=== PATIENT | female | born 1985 | race Caucasian/White ===

== ENCOUNTER 2017-04-26 09:04 | Day surgery (SDC) | payer BC ==
[~2017-04-26] VITALS: Ht 167.6 cm; Wt 91.4 kg
[2017-04-26] MEDS ORDERED: normal saline 1000ml 1,000 ML IV SCH (09:30)
[2017-04-26 09:50] LABS: BASOPHILS # (AUTO) 0.1 X10'3 (0-0.2); BASOPHILS % (AUTO) 0.7 % (0-1); EOSINOPHILS # (AUTO) 0.2 X10'3 (0-0.9); EOSINOPHILS % (AUTO) 2.9 % (0-6); HEMATOCRIT 28.6 % (35.0-45.0); HEMOGLOBIN 9.9 g/dl (12.0-16.0); LYMPHOCYTES # (AUTO) 2.4 X10'3 (1.1-4.8); LYMPHOCYTES % (AUTO) 31.8 % (21-51); MEAN CORPUSCULAR HEMOGLOBIN 30.7 PG (27.0-31.0); MEAN CORPUSCULAR HGB CONC 34.8 % (33.0-36.5); MEAN CORPUSCULAR VOLUME 88.4 FL (78-98); MEAN PLATELET VOLUME 8.3 FL (7.4-10.4); MONOCYTES # (AUTO) 0.4 X10'3 (0-0.9); NEUTROPHILS # (AUTO) 4.4 X10'3 (1.8-7.7); NEUTROPHILS % (AUTO) 58.6 % (42-75); PLATELET COUNT 151 X10'3 (140-440); RED BLOOD COUNT 3.23 X10'6 (4.20-5.60); RED CELL DISTRIBUTION WIDTH 12.3 % (11.5-14.5); WHITE BLOOD COUNT 7.5 X10'3 (4.5-11.0)
[2017-04-26] MEDS ORDERED: CALC0.5C2 PO (10:59)
[2017-04-26] MEDS ORDERED: BENA40TA2 PO (10:59)
[2017-04-26] MEDS ORDERED: ALPR1TAB2 PO (10:59)
[2017-04-26] MEDS ORDERED: PHO667C PO (10:59)
[2017-04-26] MEDS ORDERED: OXAZEpam 15mg capsule PO ONE (11:00)
[2017-04-26 11:08] VITALS: BP 133/85
[2017-04-26] MEDS ORDERED: iohexol 300mg/ml 100ml inj. ONE (11:19)
[2017-04-26] MEDS ORDERED: LIDOcaine 1%/PF (10mg/ml) 5ml vial ONE ×2 (11:19→13:28)
[2017-04-26] MEDS ORDERED: heparin 1,000 UNITS/NS 500ml 500 ML ICATH ONE (11:35)
[2017-04-26] MEDS ORDERED: LIDOcaine 1%/PF (10mg/ml) 5ml vial SQ ONE (11:35)
[2017-04-26] MEDS ORDERED: heparin 1,000 UNITS/NS 500ml 500 ML ONE ×2 (11:44→12:50)
[2017-04-26] MEDS ORDERED: fentaNYL/PF 50MCG/1 ML 2ML syringe ONE ×2 (11:45→13:41)
[2017-04-26] MEDS ORDERED: midazolam 2 mg/2 ml injection ONE (11:45)
[2017-04-26] MEDS ORDERED: tPA-cathflo 2 MG/2 ml IV flush IVF STA (11:49)
[2017-04-26] MEDS ORDERED: heparin 1,000unit/ml 10ml vial 10 ML ONE (13:22)
[2017-04-26 14:19] VITALS: BP 145/103
[2017-04-26 14:30] VITALS: BP 134/94
[2017-04-26 14:45] VITALS: BP 140/98
[2017-04-26 15:00] VITALS: BP 146/96
[2017-04-26 15:15] VITALS: BP 133/90
== END 2017-04-26 13:40 | disposition home or self-care (01) ==
LOC: SSTAY O 09:04
PROVIDERS: ATTEND Radiology Diagnostic Radiology
DX: T82.868A Thrombosis due to vascular prosthetic devices, implants and grafts, initial encounter (principal); Y83.2 Surgical operation with anastomosis, bypass or graft as the cause of abnormal reaction of the patient, or of later complication, without mention of misadventure at the time of the procedure; Z79.899 Other long term (current) drug therapy; N18.6 End stage renal disease; I12.0 Hypertensive chronic kidney disease with stage 5 chronic kidney disease or end stage renal disease
CPT/HCPCS: 36415; 36558; 36905; 76937; 77001; 85025; C1725; C1750; C1757; C1769; C1894; J1644; J2001; J2250; J2997; J3010; J7030; Q9967; 99152; 99153; A4620